=== PATIENT | male | born 1980 | race Caucasian/White ===

== ENCOUNTER 2022-09-19 20:32 | Emergency (ER) | payer OTHER | END 2022-09-19 21:55 | disposition home or self-care (01) | LOC: JP.ED 20:32 | DX: J40 Bronchitis, not specified as acute or chronic (principal); Z20.822 Contact with and (suspected) exposure to COVID-19; Z86.16 Personal history of COVID-19; Z79.899 Other long term (current) drug therapy | CPT/HCPCS: 71046; 71046-26; 99285; U0002 ==